=== PATIENT | male | born 1955 | race Caucasian/White ===

== ENCOUNTER → 2022-07-10 | Outpatient (CLI) | payer BC, MEDICARE ==
[2022-07-10 09:00] LABS: African American GFR (CKD) >90 (>60 ml/min/1.73 sqM); Blood Urea Nitrogen 17 mg/dL (9-20); Non-African American GFR(CKD) >90 (>60 ml/min/1.73 sqM)
--- NOTE | 2022-07-10 09:46 | XR ---
EXAMINATION TYPE: XR chest 2V DATE OF EXAM: 07/10/2022 COMPARISON: NONE HISTORY: Prostate carcinoma TECHNIQUE: Frontal and lateral views of the chest are obtained. FINDINGS: There is no focal air space opacity, pleural effusion, or pneumothorax seen. The cardiac silhouette size is within normal limits. The osseous structures are intact. IMPRESSION: No acute cardiopulmonary process.
--- NOTE | 2022-07-10 11:35 | CT ---
EXAMINATION TYPE: CT abdomen pelvis w con CT DLP: 1466.10 mGycm, Automated exposure control for dose reduction was used. DATE OF EXAM: 07/10/2022 10:41 AM COMPARISON: None CLINICAL INDICATION:Male, 66 years old with history of C61 prostate ca; Prostate Cancer TECHNIQUE: Axial CT of the abdomen and pelvis. Sagittal and coronal reformats were created on a [employer] workstation. Contrast used:70 ml mL of Isovue 300 with IV Contrast, Oral contrast used: with Oral Contrast FINDINGS: LOWER CHEST: Unremarkable ABDOMEN LIVER: Unremarkable GALLBLADDER AND BILE DUCTS: Unremarkable. PANCREAS: Unremarkable. SPLEEN: Unremarkable. ADRENAL GLANDS: Unremarkable. KIDNEYS AND URETERS: No evidence of hydronephrosis or renal calculus. Indeterminate left renal cyst m easuring 14 mm and 61 Hounsfield units. PELVIS BLADDER: Unremarkable REPRODUCTIVE: Measures 4.6 cm it is mildly enlarged. ABDOMEN & PELVIS STOMACH AND BOWEL: No evidence of bowel obstruction. Scattered clonic diverticula. PERITONEUM: No evidence of pneumoperitoneum or free fluid. VASCULATURE: No evidence of aortic aneurysm. MUSCULOSKELETAL: No acute osseous abnormalities, no suspicious osseous lesions. Mild degeneration laura nges of the sacroiliac joints right greater left. Mild multilevel disc degeneration changes of the sp ine. Visualized ribs are grossly unremarkable. LYMPH NODES: No gross evidence for lymphadenopathy. SOFT TISSUE/ABDOMINAL WALL: Left fat filled inguinal hernia. IMPRESSION: 1. No evidence of lymphadenopathy or suspicious osseous lesion. 2. Mild prostatomegaly. 3. Indeterminate left renal cyst, consider CT/MRI with IV contrast renal mass protocol for further c haracterization. 4. Clonic diverticulosis. 5. Fat filled left inguinal hernia.
--- NOTE | 2022-07-10 13:52 | NM ---
EXAMINATION TYPE: NM bone scan whole body DATE OF EXAM: 07/10/2022 COMPARISON: CT 07/10/2022 HISTORY: Prostate cancer Delayed whole-body scanning was performed following the injection of 22.0 mCi Tc 99m MDP. Images acq uired 4.5 hours post injection. FINDINGS: Soft tissue uptake is normal. Uptake within the hands and wrists, elbows, shoulders, sternomanubrial joints, knees, ankles and feet is likely degenerative. Uptake at the costovertebral angles in the tho racic and cervical spine is likely degenerative. No areas of abnormal increased or decreased uptake t o suggest metastatic disease. IMPRESSION: No evident metastatic disease.
== END | disposition home or self-care (01) ==
LOC: RADCTMAIN 08:04
PROVIDERS: ATTEND Urology
DX: C61 Malignant neoplasm of prostate (principal); N40.0 Benign prostatic hyperplasia without lower urinary tract symptoms; K57.30 Diverticulosis of large intestine without perforation or abscess without bleeding; K40.90 Unilateral inguinal hernia, without obstruction or gangrene, not specified as recurrent
CPT/HCPCS: 82565; 84520; 71046; 74177; 36415; 78306; A9503; Q9967

== ENCOUNTER → 2022-08-16 | Outpatient (CLI) | payer BC ==
--- NOTE | 2022-08-18 15:53 | MR ---
EXAMINATION TYPE: MR Prostate wo/w con DATE OF EXAM: 08/16/2022 8:51 AM COMPARISON: Nuclear medicine bone scan 07/10/2022.. CLINICAL INDICATION:Male, 66 years old with history of PROSTATE CA (C61); TECHNIQUE: Multi-planar, multi-sequence imaging of the pelvis is performed prior to and following the uncomplicated administration of bolus intravenous gadolinium. CONTRAST: 10 Gadavist Interpretive Criteria: PI-RADS v2.1 SERUM PSA: 8.2 on 04/10/2022 SURGICAL PATHOLOGY: Biopsy report 06/10/2022 with nearly all biopsies containing adenocarcinoma minus a left apex core biopsy which was atypical small acinar proliferation. FINDINGS: Prostatic dimensions: 4.6 x 4.3 x 3.1 cm. "Bullet" Volume: 40.13 (PSA density=0.21 ng/mL/mL) CENTRAL GLAND (Central and Transition Zones/CZ+TZ): Multiple bilateral, heterogenous appearing hypertrophic stromal nodules, without suspicious lesion. ( PI-RADS 2) PERIPHERAL ZONE (PZ): Low T2 signal seen throughout the peripheral gland most pronounced posteriorly right greater than lef t. There is associated diffusion restriction measuring up to 15 x 11 mm PI-RADS 5 followed by short s egment of non-diffusion restriction and another PI-RADS 4 lesion measuring 13 x 10 mm. Extends along the peripheral zone posteriorly up to 3.5 cm in length. SEMINAL VESICLES (SV): Diffusely collapse or atrophic, bilaterally. PERIPROSTATIC TISSUES: Unremarkable. LYMPH NODES: Left external iliac lymph node measuring up to 10 mm in short axis, 7 mm right external iliac lymph n ode. REMAINING PELVIS: Bladder is decompressed. No abnormal free or organized intrapelvic fluid collection. No pathologic bowel dilation or mural thickening. Fat containing left inguinal hernia. Scattered clonic diverticula. OSSEOUS STRUCTURES: No suspicious osseous abnormality. IMPRESSION: 1. PI-RADS 5 lesion peripheral zone mid gland lesion as well as a with posterior left peripheral zone mid gland PI-RADS 4 lesion. 2. Prominent bilateral pelvic lymph nodes can be further assessed with PET/CT Ga-68 PSMA scan for met astatic disease. 3. Mild BPH, estimated gland volume 40.13mL. 4. No suspicious osseous lesion.
== END | disposition home or self-care (01) ==
LOC: RADMRIMAIN 07:34
PROVIDERS: ATTEND Urology
DX: C61 Malignant neoplasm of prostate (principal); N40.0 Benign prostatic hyperplasia without lower urinary tract symptoms; N42.89 Other specified disorders of prostate
CPT/HCPCS: 72197; A9585

== ENCOUNTER → 2022-09-22 | Outpatient (CLI) | payer BC ==
--- NOTE | 2022-09-22 13:54 | XR ---
EXAMINATION TYPE: XR chest 2V DATE OF EXAM: 09/22/2022 COMPARISON: 07/10/2022 TECHNIQUE: PA and lateral views submitted. HISTORY: Presurgical FINDINGS: The lungs are clear and there is no pneumothorax, pleural effusion, or focal pneumonia. Heart size normal and no overt failure. Osseous structures demonstrate hypertrophic and degenerative changes of the spine. IMPRESSION: 1. No acute process.
[2022-09-22 18:30] LABS: African American GFR (CKD) 86.1 (60.0-200.0); Anion Gap 12.2 mmol/L (10.00-18.00); BUN/Creat Ratio 14.66 Ratio (12.00-20.00); Blood Urea Nitrogen 15.1 mg/dL (9.0-27.0); Calcium 9.5 mg/dL (8.7-10.3); Carbon Dioxide 26.7 mmol/L (20.0-27.5); Non-African American GFR(CKD) 74.3 (60.0-200.0); Potassium 4.1 mmol/L (3.5-5.5)
[2022-09-22 18:53] LABS: Basophils # (A) 0.05 X 10*3/uL (0.00-0.10); Basophils % (A) 0.9 %; Eosinophils # (A) 0.05 X 10*3/uL (0.04-0.35); Eosinophils % (A) 0.9 %; HCT 44.3 % (39.6-50.0); HGB 14.7 g/dL (13.0-17.0); Immature Grans, Automated 0.2 %; Lymphocytes # (A) 2.01 X 10*3/uL (0.90-5.00); Lymphocytes % (A) 36.4 %; MCH 30.7 pg (27.0-32.0); MCHC 33.2 g/dL (32.0-37.0); MCV 92.5 fL (80.0-97.0); Mean Platelet Volume 9.7 fL (9.5-12.2); Monocytes # (A) 0.47 X 10*3/uL (0.20-1.00); Monocytes % (A) 8.5 %; NRBC Per 100 WBC 0 /100 WBCS (0.0-0.0); Neutrophils # (A) 2.93 X 10*3/uL (1.80-7.70); Neutrophils % (A) 53.1 %; Platelet Count 299 X 10*3/uL (140-440); RBC 4.79 X 10*6/uL (4.40-5.60); WBC 5.52 X 10*3/uL (4.50-10.00)
[2022-09-22 20:54] LABS: Appearance,Urine Clear (Clear); Bilirubin,Urine Negative (Negative); Blood,Urine Negative (Negative); Color,Urine Yellow (Yellow); Ketones,Urine Negative (Negative); Nitrite,Urine Negative (Negative); PH, Urine 7.5 (5.0-8.0); Specific Gravity,Urine 1.018 (1.001-1.030); Urobilinogen,Urine 0.2 (0.2,1.0)
== END | disposition home or self-care (01) ==
LOC: LABPAT 13:04
PROVIDERS: ATTEND Urology
DX: Z01.812 Encounter for preprocedural laboratory examination (principal); C61 Malignant neoplasm of prostate
CPT/HCPCS: 36415; 71046; 80048; 81003; 85025; 87086

== ENCOUNTER 2022-10-02 05:40 | Observation (INO) | payer BC, MEDICARE ==
[~2022-10-02 05:40] MED LIST: HEPARIN SODIUM,PORCINE/PF 5,000 UNIT/0.5 ML SYRINGE SQ PRN
[2022-10-02] MEDS ORDERED: LACTATED RINGERS 1,000 ML IV ONE ×3 (06:30→11:34)
[2022-10-02] MEDS ORDERED: MIDAZOLAM 2 MG/2 ML VIAL IV PRN (06:41)
[2022-10-02] MEDS ORDERED: ONDANSETRON 4 MG/2 ML VIAL IVP ONE (06:41)
[2022-10-02] MEDS ORDERED: LIDOCAINE 1% (10MG/ML) FOR IV START INTRADERMA PRN (06:41)
[2022-10-02] MEDS ORDERED: HYDROmorphone 0.5 MG/0.5 ML SYRINGE IVP PRN (06:41)
[2022-10-02] MEDS ORDERED: DEXAMETHASONE SOD PHOSPHATE 4 MG/ML 1 ML VIAL IV ONE (06:41)
[2022-10-02] MEDS ORDERED: MIDAZOLAM 2 MG/2 ML VIAL IVP ONE (06:54)
[2022-10-02] MEDS ORDERED: fentaNYL (PF) 50 MCG/1 ML VIAL IVP ONE (06:54)
[2022-10-02] MEDS ORDERED: ePHEDrine 50 MG/ML 1 ML VIAL ONE (07:44)
[2022-10-02] MEDS ORDERED: HYDROmorphone (PF) 1 MG/ML ONE (07:44)
[2022-10-02] MEDS ORDERED: MIDAZOLAM 2 MG/2 ML VIAL ONE (07:44)
[2022-10-02] MEDS ORDERED: ROCURONIUM 10 MG/ML (5 ML VIAL) IV ONE (07:44)
[2022-10-02] MEDS ORDERED: fentaNYL (PF) 50 MCG/ML 2 ML AMP ONE (07:44)
[2022-10-02] MEDS ORDERED: LIDOCAINE 2% INJ 20 MG/ML (2 ML VIAL) ONE (07:44)
[2022-10-02] MEDS ORDERED: NEOSTIGMINE 1 MG/ML 10 ML VIAL ONE (07:44)
[2022-10-02] MEDS ORDERED: ROPIVACAINE 5 MG/ML 30 ML VIAL ONE (07:44)
[2022-10-02] MEDS ORDERED: PROPOFOL 10 MG/ML 20 ML VIAL IV ONE (07:44)
[2022-10-02] MEDS ORDERED: SUCCINYLCHOLINE CHLORIDE 200 MG/10 ML VIAL IV ONE (07:44)
[2022-10-02] MEDS ORDERED: KETOROLAC 15 MG/ML 1 ML VIAL ONE (07:44)
[2022-10-02] MEDS ORDERED: GLYCOPYRROLATE 0.2 MG/ML 2 ML VIAL ONE (07:44)
--- NOTE | 2022-10-02 07:49 | P.HPIHPCON ---
History of Present Illness H&P Date: 10/02/22 Chief Complaint: prostate Cancer This is a 66-year-old male with history of [place] 7(3+4) prostate cancer. Option of robotic prostatectomy versus radiation therapy was discussed with him in detail. Risk and benefit of each approach was discussed in detail. He agreed to proceed with a robotic prostatectomy with pelvic lymph nodes. Risk of bleeding, infection, erectile distention, urinary incontinence, strictures was discussed with him in detail. Discussed also with him potential of injury to nearby organs which includes but not limited to the bladder, rectum, and bowel. Discussed also with him risk from anesthesia. He understood all the risk and agreed to proceed with robotic radical prostatectomy with pelvic lymph node dissection Consent for Procedure: I have explained the operation/procedure to the patient, including the risks, benefits, side effects, alternative therapies (including not receiving the proposed treatment or service), the likelihood of the patient achieving his/her goals, and potential recuperation problems for the procedure/sedation/analgesia, as well as any blood products, if indicated. I also explained to the patient the risks, benefits and side effects of the alternatives, as well as the risks related to not receiving the proposed procedure, care, treatment, or services. Past Medical History Past Medical History: Cancer, Hyperlipidemia, Hypertension, Prostate Disorder Additional Past Medical History / Comment(s): prostate cancer. ? cyst on kidney. History of Any Multi-Drug Resistant Organisms: None Reported Additional Past Surgical History / Comment(s): colonoscopy, Past Anesthesia/Blood Transfusion Reactions: No Reported Reaction Smoking Status: Never smoker - Past Family History Sister(s) Family Medical History: Seizure Disorder Mother Additional Family Medical History / Comment(s): arrhythmia Father Family Medical History: Diabetes Mellitus Medications and Allergies Home Medications Medication Instructions Recorded Confirmed Type Atorvastatin [Lipitor] 10 mg PO HS 09/26/22 10/02/22 History Lisinopril-Hctz 20-25 mg 1 tab PO DAILY 09/26/22 10/02/22 History [Zestoretic 20-25] Unk Heart Healthy Vitamin 1 tab PO DAILY 09/26/22 10/02/22 History Unk Magnesium 1 tab PO DAILY 09/26/22 10/02/22 History Unk Probiotic 1 tab PO DAILY 09/26/22 10/02/22 History Unk Saw [place] 1 tab PO DAILY 09/26/22 10/02/22 History Allergies Allergy/AdvReac Type Severity Reaction Status Date / Time No Known Allergies Allergy Verified 10/02/22 06:16 Surgical - Exam Vital Signs Temp Pulse Resp BP Pulse Ox 97.3 F L 66 16 144/76 99 10/02/22 06:30 10/02/22 06:30 10/02/22 06:30 10/02/22 06:30 10/02/22 06:30 - General no distress, no pain - Eyes normal ocular movement, no pale - ENT normal nares, normal mucosa - Respiratory normal expansion, normal respiratory effort - Abdomen Abdomen: soft, non tender Assessment and Plan Assessment: OR robotic radical prostatectomy and pelvic lymph node dissection
[2022-10-02] MEDS ORDERED: BUPIVACAINE (PF) 0.25% 30 ML VIAL SQ ONE ×2 (08:32→11:46)
--- NOTE | 2022-10-02 09:17 | P.ANPRN ---
Procedure Note - Anesthesia - Nerve Block Performed Bilateral Erector Spinae Single Time Out Performed: Yes Date of Procedure: 10/02/22 Procedure Start Time: 06:53 Procedure Stop Time: 07:09 Location of Patient: PreOp Indication: Acute Post-Operative Pain, Requested by Surgeon Sedation Type: Sedate with meaningful contact maintained Preparation: Sterile Prep Position: Sitting Needle Types: Pajunk Needle Gauge: 21 Ultrasound used to visualize needle placement: Yes Ultrasound used to observe medication spread: Yes Injectate: 0.5% Ropivacaine (see comment for volume) (left/right 0.20% ropiv 20 ml each) Blood Aspirated: No Pain Paresthesia on Injection Noted: No Resistance on Injection: Normal Image Stored and Saved: Yes Events: Uneventful and Well Tolerated
--- NOTE | 2022-10-02 11:55 | P.OP ---
Date of Procedure: 10/02/22 Preoperative Diagnosis: Prostate cancer Postoperative Diagnosis: Same Procedure(s) Performed: Robotic-assisted laparoscopic radical prostatectomy and pelvic lymph node dissection Implants: none Anesthesia: SHARLA Surgeon: Obdulio Gonzales Instrument Mechanic Weapons System #1: Elana Arana Estimated Blood Loss (ml): 100 Pathology: other (Prostate, bilateral seminal vesicles, bilateral pelvic lymph node) Condition: stable Disposition: PACU Indications for Procedure: This is a 66-year-old male with history of [place] 7(3+4) prostate cancer. Option of robotic prostatectomy versus radiation therapy was discussed with him in detail. Risk and benefit of each approach was discussed in detail. He agreed to proceed with a robotic prostatectomy with pelvic lymph nodes. Risk of bleeding, infection, erectile distention, urinary incontinence, strictures was discussed with him in detail. Discussed also with him potential of injury to nearby organs which includes but not limited to the bladder, rectum, and bowel. Discussed also with him risk from anesthesia. He understood all the risk and agreed to proceed with robotic radical prostatectomy with pelvic lymph node dissection Description of Procedure: After preoperative antibiotics were started, the patient was taken to the operating room. Anesthesia was induced and the patient was placed in a supine position, with adequate padding of the pressure points, shoulders, back, legs and arms. He was then prepped and draped in the standard fashion. A critical pause was performed using two patient identifiers. A 16F matthews catheter was placed to gravity drainage. A pneumo-peritoneum was created with placement of a Veress needle to 20 mm Hg without complication, and a 8 Fr trocar was placed above the umbillicus. Under direct vision a 8mm robotic ports was placed lateral to each rectus slightly below the camera port. The left iliac fossa 8mm port was placed. The right assistant program director right iliac fossa 12mm port and right paramedian 5mm portwere placed. After the patient was placed in the trendelenberg position, the robot was then docked to the 8mm robotic ports and then each robotic arm and tower was checked in relation to the patient's legs and hands to avoid inadvertent compression. The peritoneal cavity was inspected. An inverted U-shaped incision began laterally to the left medial umbilical ligament and extended high across the midline to the right umbilical ligament. The limbs of the "U" extended to the level of the vasa on both sides. We next developed the preperitoneal space and the space of Retzius. Cautery was used to dissected the bladder away from the prostate. After the anterior bladder neck was incised and the bladder entered the the posterior bladder neck was exposed and the ureteral orifces identified. The posterior bladder neck was then incised and dissected away from the prostate. The vas and the seminal vesicles were now exposed and dissected to their insertions into the prostate and were not spared. The posterior layer of the Denonvillier's fascia was incised to enter tara the plane between prostate and perirectal fat. Each lateral pedicle was controlled with clips and cautery for hemostasis. Complete nerve preservation was performed bilaterally The puboprostatic ligament was incised where it inserted into the apex of the prostate and a plane between urethra and dorsal venous complex developed to expose the anterior urethral surface. The anterior wall of the urethra was transected with the cut setting a few millimeters distal to the apex of the prostate. The dorsal vein was ligated using 3-0 V lock bilateral obturator and external iliac lymph node packets were carefully dissected after careful visualization of the hypogastric artery and obturator nerve. There was careful attention paid to hemostasis with judicious use of cautery. The urethrovesical anastomosis was performed . the posterior denovillers was reapproximated using 3-0 V lock. A 6 and 6 inch 3-0 V-Lock suture was used to anastomose the urethra and bladder, starting at the 6:00 posterior position. Mucosa was secured in every stitch, to ensure a mucosa to mucosa anastomosis. The stitch was regularly cinched and the anastomosis tightened. Care was taken to not violate the ureteral orifices. The Matthews catheter was advanced, the bladder filled, and the anastomosis was tested, as described above. Anastomsis was watertight at150 mL The periumbilical fascia was closed with 1-0-PDS suture in running fashion. All ports were closed with a subcuticular 4-0 monocryl and Dermabond. Sponge, instrument, and needle counts were correct at the end of the case x2. All specimens including prostate and lymph nodes were sent to pathology for diagnosis and will be available in a week. The patient tolerated the surgery well and without complication. He awoke without difficulty and was taken to the recovery room in stable condition
[2022-10-02] MEDS: LACTATED RINGERS 1,000 ML IV SCH (12:26)
[2022-10-02] MEDS: KETOROLAC 15 MG/ML 1 ML VIAL IVP SCH ×2 (13:26→17:33)
[2022-10-02] MEDS: HYDROcodone/APAP 5-325MG 1 EACH TAB PO PRN ×2 (14:16→20:17)
[2022-10-02] MEDS: D5-0.45% NACL WITH KCL 20MEQ/L 1,000 ML IV SCH ×2 (14:35→21:14)
[2022-10-02] MEDS: HEPARIN SODIUM,PORCINE/PF 5,000 UNIT/0.5 ML SYRINGE SQ SCH (15:05)
[2022-10-02] MEDS ORDERED: ATORVASTATIN 10 MG TAB PO SCH (21:00)
[2022-10-03] MEDS: KETOROLAC 15 MG/ML 1 ML VIAL IVP SCH ×3 (00:13→11:27)
[2022-10-03] MEDS: HEPARIN SODIUM,PORCINE/PF 5,000 UNIT/0.5 ML SYRINGE SQ SCH ×2 (00:14→08:29)
[2022-10-03] MEDS: D5-0.45% NACL WITH KCL 20MEQ/L 1,000 ML IV SCH ×2 (05:32→06:10)
[2022-10-03] MEDS: LACTATED RINGERS 1,000 ML IV SCH (06:11)
[2022-10-03] MEDS ORDERED: LISINOPRIL-HCTZ 20-25 MG 1 EACH TAB PO SCH (09:00)
[2022-10-03 11:11] VITALS: BMI 31.8
[2022-10-03 16:01] VITALS: BP 126/75; PULSE 88; RESP 19; TEMP 97.9
--- NOTE | 2022-10-15 06:49 | P.DS ---
Providers Date of admission: 10/03/22 08:01 Expected date of discharge: 10/03/22 Attending physician: Obdulio Gonzales MD Primary care physician: Wilfrid Goodrich MD Hospital Course: On the day of admission, the patient underwent an uncomplicated RALP with bilateral pelvic lymphadenectomy. The perioperative course was unremarkable. Patient remained afebrile with stable vital signs. On the first postoperative day, he reported abdominal discomfort which he described as "gas pain". He reported a sore throat and difficulty swallowing, but was drinking and ambulating without difficulty. On examination, the abdomen was soft and non-distended. The incisions were clean, dry, and intact. As the day progressed, his condition improved such that he was ready for discharge home. Procedures: Robotic-assisted laparoscopic prostatectomy (RALP) with bilateral pelvic lymphadenectomy in 10/02/2022. Patient Condition at Discharge: Good Plan - Discharge Summary Discharge Rx Participant: No New Discharge Prescriptions: New Ciprofloxacin HCl [Cipro] 250 mg PO Q12HR #6 tablet Ketorolac [Toradol] 10 mg PO Q6HR PRN #10 tab PRN Reason: Pain HYDROcodone/APAP 5-325MG [[place] 5-325] 1 - 2 tab PO Q4HR PRN #6 tab PRN Reason: Pain No Action Unk Saw [place] 1 tab PO DAILY Unk Probiotic 1 tab PO DAILY Unk Magnesium 1 tab PO DAILY Unk Heart Healthy Vitamin 1 tab PO DAILY Lisinopril-Hctz 20-25 mg [Zestoretic 20-25] 1 tab PO DAILY Atorvastatin [Lipitor] 10 mg PO HS Discharge Medication List Atorvastatin [Lipitor] 10 mg PO HS 09/26/22 [History] Lisinopril-Hctz 20-25 mg [Zestoretic 20-25] 1 tab PO DAILY 09/26/22 [History] Unk Heart Healthy Vitamin 1 tab PO DAILY 09/26/22 [History] Unk Magnesium 1 tab PO DAILY 09/26/22 [History] Unk Probiotic 1 tab PO DAILY 09/26/22 [History] Unk Saw [place] 1 tab PO DAILY 09/26/22 [History] Ciprofloxacin HCl [Cipro] 250 mg PO Q12HR #6 tablet 10/03/22 [Rx] HYDROcodone/APAP 5-325MG [[place] 5-325] 1 - 2 tab PO Q4HR PRN #6 tab 10/03/22 [Rx] Ketorolac [Toradol] 10 mg PO Q6HR PRN #10 tab 10/03/22 [Rx] Follow up Appointment(s)/Referral(s): Obdulio Gonzales MD [STAFF PHYSICIAN] - 10 Days (Please call office Thursday for appointment. Thank you.) [facility], [NON-STAFF] - ([facility] will call you to arrange a visit) Patient Instructions/Handouts: Bill Catheter Placement and Care (DC), Robot Assisted Laparoscopic Prostatectomy (DC) Activity/Diet/Wound Care/Special Instructions: Discharge home with Bill catheter. Instruct patient to use overnight drainage bag as well as urinary leg bag. Okay to shower. Diet as tolerated. No lifting, driving, or strenuous activity. Reassure patient that abdominal wall ecchymosis and penoscrotal swelling are normal. Instruct patient to begin taking antibiotics one day prior to Bill catheter removal. Discharge Disposition: HOME SELF-CARE
== END 2022-10-03 17:40 | disposition home or self-care (01) ==
LOC: OR 05:40 → 4SSUR 11:47 → OR 10-03 08:01 → 4SSUR 10-03 08:01
PROVIDERS: ADMIT Urology; ATTEND Urology
DX: C61 Malignant neoplasm of prostate (principal); E78.5 Hyperlipidemia, unspecified; I10 Essential (primary) hypertension; Z98.890 Other specified postprocedural states; Z82.0 Family history of epilepsy and other diseases of the nervous system; Z82.49 Family history of ischemic heart disease and other diseases of the circulatory system; Z83.3 Family history of diabetes mellitus; Z79.899 Other long term (current) drug therapy
CPT/HCPCS: 38571; 64999; 86900; 86901; 86850; 88307; 88309; G0378; J2250; J0330; J1100; J2710; J0690; J2405; J3010 ×2; J1170 ×2; J2795; J1885 ×2; J2704; J1644 ×2; J2001

== ENCOUNTER → 2023-08-01 | Outpatient (CLI) | payer MEDICARE ==
--- NOTE | 2023-08-02 09:07 | MR ---
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 COMPARISON: 07/10/2022 CT TECHNIQUE: Multiplanar multi-sequence imaging was performed without contrast. Post contrast imaging was performed. Post IV contrast subtraction images were also submitted for review. IV Contrast: 10 cc Gadobutrol FINDINGS: LOWER CHEST: The heart is mildly enlarged for size. ABDOMEN Liver: No evidence for cirrhosis. Signal dropout on chemical shift artifact is imaging. Gallbladder and Bile ducts: No evidence for ductal dilation, or biliary stricture or evidence of chol edocholithiasis. The gallbladder is within normal limits. Pancreas: No ductal dilation. No evidence for solid mass. Spleen: Normal for size. Adrenal glands: Unremarkable. Kidneys: Left kidney: High T2 signal left inferior pole renal cyst. Additional low T2 signal [address] which is exophytic and demonstrates intrinsic high T1 signal. No evidence for enhancement on subtr action imaging. No suspicious solid renal masses. No evidence for hydronephrosis. Right kidney: No evidence for hydronephrosis or solid renal neoplasm. Stomach and Bowel: No evidence for bowel wall thickening or evidence for obstruction.. Scattered col onic diverticula. Peritoneum: No evidence of pneumoperitoneum or free fluid. Vasculature: No aortic aneurysm. Musculoskeletal: The osseous structures appear intact. Lymph Nodes: No gross evidence for lymphadenopathy. Abdominal wall: Fat-containing umbilical hernia. IMPRESSION: 1. Left renal proteinaceous/hemorrhagic cyst. No evidence for solid renal neoplasm. 2. Colonic diverticulosis. 3. Hepatic steatosis.
== END | disposition home or self-care (01) ==
LOC: RADMRIMAIN 07-18 11:27
PROVIDERS: ATTEND Urology
DX: D41.02 Neoplasm of uncertain behavior of left kidney (principal); K57.30 Diverticulosis of large intestine without perforation or abscess without bleeding; K76.0 Fatty (change of) liver, not elsewhere classified; N28.1 Cyst of kidney, acquired
CPT/HCPCS: 74183; A9585

== ENCOUNTER → 2024-02-01 | Outpatient (CLI) | payer MEDICARE ==
--- NOTE | 2024-02-08 20:01 | PE ---
EXAMINATION TYPE: PET CT fusion skull to thigh DATE OF EXAM: 02/01/2024 COMPARISON: None Prior PET/CT: 07/10/2022 HISTORY: Prostate cancer TECHNIQUE: Patient was injected with intravenous administration of 6.27 mCi of gallium 28 no images w ere acquired. SCAN: Initial DLP 50.17 FINDINGS: None IMPRESSION: 1. Study was terminated prior to imaging.
== END | disposition home or self-care (01) ==
LOC: RADPETMAIN 09:48
PROVIDERS: ATTEND Urology
DX: C61 Malignant neoplasm of prostate (principal)

== ENCOUNTER → 2024-02-25 | Outpatient (CLI) | payer MEDICARE ==
--- NOTE | 2024-02-28 13:00 | PE ---
EXAMINATION TYPE: PET CT fusion skull to thigh DATE OF EXAM: 02/25/2024 CLINICAL INDICATION:Male, 68 years old with history of C61 PROSTATE CANCER; TECHNIQUE: Following the intravenous administration of 6.76 mCi of Ga-68 Illuccix (PSMA), whole bod y images are performed from the skull base to the midthigh. Images are reviewed on the computer in t he coronal, axial, and sagittal planes. Reconstructed rotating images are created on independent wor kstation and reviewed on the computer. A non-contrast CT is performed in conjunction with the PET s can. CT DLP: 864 mGycm, Automated exposure control for dose reduction was used. COMPARISON: CT None, PET/CT None, bone scan 07/10/2022, CT 07/10/2022, prostate MRI 08/18/2022 FINDINGS: Mediastinal SUV mean is 1.6. Hepatic parenchyma SUV mean is 5.42. SKULL BASE AND NECK: No suspicious radiotracer activity. CHEST, MEDIASTINUM, AND HILAR REGION: No suspicious radiotracer activity. ABDOMEN AND PELVIS: * No suspicious radiotracer activity. * The prostate gland appears surgically absent. * Pelvic lymph nodes seen on prior MRI is not definitively have increased uptake. MUSCULOSKELETAL STRUCTURES: No suspicious radiotracer activity. OTHER CT: Mild cardiomegaly. Indeterminate left proteinaceous/hemorrhagic cyst as seen on prior MRI [place]. Scattered colonic diverticula. Ventral wall fat-containing hernia. Fat-containing buccal herni a. IMPRESSION: 1. Postsurgical changes with prostatectomy no evidence for metastatic disease at this time. 2. No uptake within the pelvic lymph node seen on prior prostate MRI.
== END | disposition home or self-care (01) ==
LOC: RADPETMAIN 13:33
PROVIDERS: ATTEND Urology
DX: C61 Malignant neoplasm of prostate (principal)
CPT/HCPCS: 78815; A9596